=== PATIENT | female | born 2000 | race Caucasian/White ===

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

== ENCOUNTER 2018-03-17 00:37 | Emergency (ER) | payer OTHER ==
[~2018-03-17] VITALS: Ht 165.1 cm; Wt 98.4 kg
[2018-03-17 00:43] VITALS: Ht 165.1 cm; Wt 98.4 kg
[2018-03-17 01:39] LABS: BASOPHIL % 0.7 % (0-2); PLATELET COUNT 284 x10^3mcL (130-400); RED CELL DISTRIBUTION WIDTH 13.2 % (11.5-14.5)
[2018-03-17 02:27] LABS: CALCIUM 8.9 mg/dL (8.5-10.1); CARBON DIOXIDE 27.1 mmol/L (21-32); CHLORIDE SERUM 103 mmol/L (98-107); CREATININE SERUM 0.8 mg/dL (0.6-1.0); GFR1 > 60 mL/min; GLUCOSE SERUM 102 mg/dL (74-106); SODIUM SERUM 138 mmol/L (136-145)
[2018-03-17 02:31] LABS: ALBUMIN 4.1 g/dL (3.4-5.0); ALKALINE PHOSPHATASE 67 U/L (46-116); ALT/SGPT 19 U/L (14-59); AST/SGOT 13 U/L (15-37); LIPASE 194 IU/L (73-393); TOTAL PROTEIN, SERUM 7.8 g/dL (6.4-8.2)
[2018-03-17 02:38] LABS: POTASSIUM SERUM 3.9 mmol/L (3.5-5.1)
[2018-03-17 04:30] VITALS: BP 130/82
== END 2018-03-17 04:30 | disposition home or self-care (01) ==
LOC: ED 00:37
PROVIDERS: Emergency Medicine
DX: N60.12 Diffuse cystic mastopathy of left breast (principal); N60.11 Diffuse cystic mastopathy of right breast; R07.89 Other chest pain; M54.6 Pain in thoracic spine; R05 Cough; R19.7 Diarrhea, unspecified
CPT/HCPCS: 36415; Q0092

== ENCOUNTER 2018-04-30 18:37 | Emergency (ER) | payer OTHER ==
[~2018-04-30] VITALS: Ht 165.1 cm; Wt 100.9 kg
[2018-04-30 18:50] VITALS: Ht 165.1 cm; Wt 100.9 kg
[2018-04-30 20:05] VITALS: BP 138/91
== END 2018-04-30 20:23 | disposition home or self-care (01) ==
LOC: ED 18:37
DX: S80.862A Insect bite (nonvenomous), left lower leg, initial encounter (principal); S80.861A Insect bite (nonvenomous), right lower leg, initial encounter; W57.XXXA Bitten or stung by nonvenomous insect and other nonvenomous arthropods, initial encounter; Y93.89 Activity, other specified; Y92.89 Other specified places as the place of occurrence of the external cause; Y99.8 Other external cause status

== ENCOUNTER 2019-07-17 13:35 | Emergency (ER) | payer OTHER ==
[~2019-07-17] VITALS: Ht 165.1 cm; Wt 115.0 kg
[2019-07-17 13:53] VITALS: Ht 165.1 cm; Wt 115.0 kg
[2019-07-17 14:34] LABS: BASOPHIL % 0.4 % (0-2); PLATELET COUNT 273 x10^3mcL (130-400); RED CELL DISTRIBUTION WIDTH 12.4 % (11.5-14.5)
[2019-07-17 14:40] LABS: CALCIUM 8.6 mg/dL (8.5-10.1); CARBON DIOXIDE 24.9 mmol/L (21-32); CHLORIDE SERUM 104 mmol/L (98-107); CREATININE SERUM 0.8 mg/dL (0.6-1.0); GFR1 > 60 mL/min; GLUCOSE SERUM 137 mg/dL (74-106); POTASSIUM SERUM 3.9 mmol/L (3.5-5.1); SODIUM SERUM 139 mmol/L (136-145)
[2019-07-17 14:42] LABS: ALBUMIN 3.7 g/dL (3.4-5.0); ALKALINE PHOSPHATASE 68 U/L (46-116); ALT/SGPT 20 U/L (14-59); AST/SGOT 10 U/L (15-37); BILIRUBIN TOTAL 0.3 mg/dL (0.20-1.00); LIPASE 184 IU/L (73-393); TOTAL PROTEIN, SERUM 7.7 g/dL (6.4-8.2)
[2019-07-17 15:57] VITALS: BP 139/80
== END 2019-07-17 15:57 | disposition home or self-care (01) ==
LOC: ED 13:35
PROVIDERS: Emergency Medicine
DX: R10.817 Generalized abdominal tenderness (principal); R10.12 Left upper quadrant pain; R11.0 Nausea
CPT/HCPCS: 36415; Q0092